=== PATIENT | female | born 1950 | race Caucasian/White ===

== ENCOUNTER 2021-06-24 12:08 | Day surgery (SDC) | payer MEDICARE, OTHER ==
[2021-06-17 15:07] LABS: BASOPHILS # (AUTO) 0.1 X10'3 (0-0.2); BASOPHILS % (AUTO) 0.9 % (0-1); EOSINOPHILS # (AUTO) 0.2 X10'3 (0-0.9); EOSINOPHILS % (AUTO) 2.4 % (0-6); LYMPHOCYTES % (AUTO) 23.3 % (21-51); MEAN CORPUSCULAR HEMOGLOBIN 30.7 PG (27.0-31.0); MEAN CORPUSCULAR HGB CONC 34.9 g/dL (33.0-36.5); MEAN PLATELET VOLUME 7.2 FL (7.4-10.4); MONOCYTES # (AUTO) 0.6 X10'3 (0-0.9); MONOCYTES % (AUTO) 6.7 % (2-12); NEUTROPHILS # (AUTO) 5.7 X10'3 (1.8-7.7); NEUTROPHILS % (AUTO) 66.7 % (42-75); PRE OP HEMATOCRIT 43.1 % (35.0-45.0); PRE OP PLATELET COUNT 257 X10'3 (140-440); RED CELL DISTRIBUTION WIDTH 13.9 % (11.5-14.5)
[2021-06-17 15:22] LABS: ALBUMIN/GLOBULIN RATIO 0.9 (1.1-1.5); ALKALINE PHOSPHATASE 79 IU/L (46-116); BLOOD UREA NITROGEN 19 MG/DL (7-18); BUN/CREATININE RATIO 20.4 (6.6-38.0); CALCIUM 9.4 MG/DL (8.5-10.1); CHLORIDE 106 MMOL/L (99-107); CREATININE 0.93 MG/DL (0.40-0.90); PRE OP ALT 58 U/L (30-65); PRE OP ANION GAP 15 (8-16); PRE OP AST 44 U/L (10-37); PRE OP BILIRUB, TOTAL 0.3 MG/DL (0.0-1.0); PRE OP GLUCOSE 174 MG/DL (70-104); PRE OP POTASSIUM 3.8 MMOL/L (3.4-5.1); PRE OP SODIUM 143 MMOL/L (135-145); TOTAL CARBON DIOXIDE 22.4 MMOL/L (24-32); TOTAL PROTEIN 8.6 G/DL (6.4-8.2); eGFR 59 ML/MIN
[2021-06-17 15:49] LABS: CLARITY,URINE CLOUDY (Clear); COLOR,URINE YELLOW (Yellow); GLUCOSE, URINE NEGATIVE (Neg); KETONES,URINE NEGATIVE (Neg); OCCULT BLOOD,URINE MODERATE (Neg); PROTEIN,URINE TRACE mg/dl (Neg); UA COLLECTION TYPE FOLEY CATH
[2021-06-17 15:50] LABS: LEUKOCYTE ESTERASE ,URINE MODERATE (Neg); NITRITES, URINE POSITIVE (Neg); UROBILINOGEN,URINE 0.2 E.U/dL (0.2-1.0)
[2021-06-17 16:18] LABS: BACTERIA,URINE 4+ /HPF (Neg); WBC,URINE 50-100 /HPF (0-4)
[2021-06-17 16:19] LABS: SQUAMOUS EPITHELIAL CELL,UR FEW /LPF (FEW); WBC CLUMPS,URINE MODERATE /HPF (NEGATIVE)
[~2021-06-24] VITALS: Ht 165.1 cm; Wt 74.3 kg
[~2021-06-24 12:08] MED LIST: ATEN25TA PO; DOCUMENT DATE & TIME OF BETA-BLOCKER PO ONE; famotidine 20mg tablet PO ONE; ringers solution, lacted 1,000 ML IV SCH
[2021-06-24 12:30] VITALS: BP 142/89
[2021-06-24] MEDS ORDERED: meperidine/PF 25mg/ml syringe IV PRN ×3 (13:05)
[2021-06-24] MEDS ORDERED: ondansetron/PF 4mg/2ml inj IV PRN (13:05)
[2021-06-24] MEDS ORDERED: morphine 4 MG/ML inj SYRINge IV PRN (13:05)
[2021-06-24] MEDS ORDERED: ringers solution, lacted 1,000 ML IV SCH (13:05)
[2021-06-24] MEDS ORDERED: morphine 2 MG/ML inj. syringe IV PRN (13:05)
[2021-06-24] MEDS ORDERED: proCHLORperazine 10 MG/2 ml inj IV PRN (13:05)
[2021-06-24] MEDS ORDERED: SULF1TAB49 PO (13:18)
[2021-06-24] MEDS ORDERED: midazolam 1 mg/ML 2ml injection ONE (16:56)
[2021-06-24] MEDS ORDERED: fentaNYL/PF 50MCG/1 ML 2ML syringe ONE (16:56)
[2021-06-24] MEDS ORDERED: dexamethasone sod phosphate 4mg/ml inj. ONE (17:25)
[2021-06-24] MEDS ORDERED: LIDOcaine 2% (20mg/ml) 5ml vial ONE (17:25)
[2021-06-24] MEDS ORDERED: ondansetron/PF 4mg/2ml inj ONE (17:25)
[2021-06-24] MEDS ORDERED: propofol inj 20 ML IV ONE (17:25)
[2021-06-24] MEDS ORDERED: flumazenil 0.1 mg/ml inj. IV ONE (17:34)
[2021-06-24 17:37] VITALS: BP 137/88
[2021-06-24] MEDS ORDERED: oxyCODONE/APAP 5-325mg tablet PO PRN ×2 (17:40)
[2021-06-24 17:50] VITALS: BP 135/88
--- NOTE | 2021-06-24 17:54 | NUR ---
Received from OR via [facility] IN STABLE CONDITION , accompanied by Anesthesiologist and CUSTOMS INVESTIGATOR report given by CUSTOMS INVESTIGATOR AND Anesthesiolgist. Addendum: 06/24/21 at 1755 by Seda Chatterjee RN Amended: Links added. Addendum: 06/24/21 at 1758 by Seda Chatterjee RN TIME CORRECTION [id number]
[2021-06-24 18:00] VITALS: BP 136/83
[2021-06-24 18:10] VITALS: BP 133/66
--- NOTE | 2021-06-24 18:47 | NUR ---
PATIENT DISCHARGED FROM PACU IN STABLE CONDITION AFTER WRITTEN AND VERBAL DISCHARGE INSTRUCTIONS GIVEN. PATIENT GAVE VERBAL UNDERSTANDING OF INSTRUCTIONS GIVEN. PATIENT LEFT FACILITY VIA WHEELCHAIR WITH RN. Addendum: 06/24/21 at 1856 by Seda Chatterjee RN Amended: Links added.
== END 2021-06-24 18:47 | disposition home or self-care (01) ==
LOC: PAS 12:08
PROVIDERS: ATTEND Obstetrics & Gynecology
DX: N88.8 Other specified noninflammatory disorders of cervix uteri (principal); C53.9 Malignant neoplasm of cervix uteri, unspecified; I10 Essential (primary) hypertension; M19.90 Unspecified osteoarthritis, unspecified site; E66.9 Obesity, unspecified; Z68.27 Body mass index [BMI] 27.0-27.9, adult; Z88.5 Allergy status to narcotic agent; Z20.822 Contact with and (suspected) exposure to COVID-19; Z79.899 Other long term (current) drug therapy; Z87.891 Personal history of nicotine dependence; Z98.890 Other specified postprocedural states; Z82.49 Family history of ischemic heart disease and other diseases of the circulatory system
CPT/HCPCS: 36415; 57500; 80053; 81001; 82948; 85025; 86885; 86900; 86901; 87077; 87088; 87186; J1100; J2001; J2250; J2405; J2704; J3010; J7030; U0003; Z7506; Z7512; 88305; A4355; A4618; A6258; A7000; J3490; J7120